=== PATIENT | male | born 1945 | race Caucasian/White ===

== ENCOUNTER 2022-08-23 02:57 | Emergency (ER) | payer OTHER, MEDICARE ==
[2022-08-23 03:18] VITALS: BP 110/53; PULSE 71; RESP 18; TEMP 97.6; BMI 14.1
== END 2022-08-23 07:18 | disposition home or self-care (01) ==
LOC: JER 02:57
DX: S00.83XA Contusion of other part of head, initial encounter (principal); S05.12XA Contusion of eyeball and orbital tissues, left eye, initial encounter; W06.XXXA Fall from bed, initial encounter
CPT/HCPCS: 70450-TC; 70486-TC; 72125-TC; 99285-25

== ENCOUNTER 2022-09-24 10:06 | Emergency (ER) | payer OTHER, MEDICARE ==
[2022-09-24 10:42] VITALS: BP 0/0; PULSE 0; RESP 0; TEMP 0; BMI 13.8
== END 2022-09-24 12:00 | disposition expired ==
LOC: JER 10:06
DX: I46.9 Cardiac arrest, cause unspecified (principal)
CPT/HCPCS: 93308; 99284-25